=== PATIENT | female | born 1975 | race Caucasian/White ===

== ENCOUNTER 2019-11-25 08:13 | Outpatient (CLI) | payer OTHER, SELFPAY ==
--- NOTE | ~2019-11-25 | US_ITS ---
EXAMINATION: US thyroid DATE: 11/25/2019 08:45 INDICATION: Nontoxic single thyroid nodule TECHNIQUE: Multiple ultrasound images of the thyroid were obtained. COMPARISON: None. FINDINGS: The right thyroid lobe measures 4.9 x 2.0 x 2.3 cm. The left thyroid lobe measures 5.3 x 1.4 x 1.2 c m. Again seen are multiple bilateral thyroid nodules. No significant interval change in 1.5 cm (TI-R ADS 4, moderately suspicious , FNA if >=1.5 cm, annual followup is >1 cm) hypoechoic solid nodule or of a 1.9 cm (TI-RADS 3, mildly suspicious , FNA if >=2.5 cm, annual followup is >1.5 cm) mixed solid and cystic nodule, both in the right thyroid lobe. No significant interval change in a 1.3 cm solid hypoechoic TI-RADS 4 nodule at the junction of the left thyroid and thyroid isthmus. Smaller 12 mm so lid and 10 mm mixed solid and cystic nodules in the right thyroid and 8 mm solid nodule mid left thyr oid are also unchanged. IMPRESSION: 1. No significant interval change in multiple bilateral thyroid nodules. The largest solid TI-RADS 4 nodule in the right thyroid nodule measures 1.5 cm which is at the threshold for recommendation ultra sound-guided biopsy. Given the lack of significant interval change could consider either continued an nual follow-up or biopsy at this time. Reviewed, dictated and finalized at location A. IMPRESSION: 1. No significant interval change in multiple bilateral thyroid nodules. The la rgest solid TI-RADS 4 nodule in the right thyroid nodule measures 1.5 cm which is at the threshold for recommendation ultrasound-guided biopsy. Given the lack of significant interval change could consider either continued annual follow-u p or biopsy at this time.
== END 2019-11-25 08:14 | disposition home or self-care (01) ==
LOC: ANHIMG 08:15
PROVIDERS: PCP Family Medicine; Visit Provider Family Medicine
DX: E04.1 Nontoxic single thyroid nodule (principal)
CPT/HCPCS: 76536

== ENCOUNTER → 2019-12-06 13:00 | Outpatient (CLI) | payer OTHER, SELFPAY ==
--- NOTE | ~2019-12-06 | MM_ITS ---
EXAMINATION: MM screening jadiel BI w adriana HISTORY: Screening mammogram TECHNIQUE: Craniocaudal and mediolateral oblique 3-D tomosynthesis images were obtained and synthetic 2-D images were generated. CAD analysis was submitted and interpreted. COMPARISON: 11/02/2018 BREAST PARENCHYMAL COMPOSITION: There are scattered areas of fibroglandular density. FINDINGS: There is no evidence of suspicious mass, calcification, or architectural distortion to sugg est malignancy in either breast. There has been no suspicious interval change. IMPRESSION: 1. No mammographic evidence of malignancy. 2. Recommend routine screening mammography in one year. BI-RADS Category 1: Negative Reviewed, dictated and finalized at location A.
== END ==
PROVIDERS: PCP Family Medicine; Visit Provider Family Medicine
DX: Z12.31 Encounter for screening mammogram for malignant neoplasm of breast (principal)
CPT/HCPCS: 77063; 77067

== ENCOUNTER 2020-05-28 09:23 | Outpatient (CLI) | payer OTHER, SELFPAY ==
--- NOTE | 2020-05-28 09:27 | ECG_ITS ---
Measurements Intervals [place] Rate: 66 P: 46 [place]: 163 QRS: 60 QRSD: 83 T: 34 QT: 401 QTc: 422 Interpretive Statements SINUS RHYTHM BORDERLINE ST-T WAVE ABNORMALITY- INFERIOR LEADS BASELINE ARTIFACT- I, II, III, AVR, AVL, AVF BORDERLINE ECG Electronically Signed On 05-28-2020 9:38:41 CDT by Jt Velásquez D.O.
[2020-05-28 09:57] LABS: Anion Gap 5 mmol/L (8-16); Blood Urea Nitrogen 18 mg/dL (7-17); Carbon Dioxide 23 mmol/L (22-30); Chloride 110 mmol/L (98-107); Estimated Glomerular Filt Rate > 60; Glucose 95 mg/dL (65-105); Potassium 3.5 mmol/L (3.4-5.0); Sodium 138 mmol/L (137-145)
== END 2020-05-28 09:24 | disposition home or self-care (01) ==
LOC: ANHSURGERY 09:27
PROVIDERS: Anesthesiology; PCP Family Medicine; Visit Provider Otolaryngology
DX: Z01.818 Encounter for other preprocedural examination (principal); I10 Essential (primary) hypertension; Z51.81 Encounter for therapeutic drug level monitoring
CPT/HCPCS: 36415; 80048; 87635; 93005; C9803; U0003

== ENCOUNTER 2020-05-30 02:54 | Outpatient (CLI) | payer OTHER, SELFPAY ==
[2020-05-30 18:40] LABS: SARS-CoV-2 RNA PCR Negative
== END 2020-05-30 02:55 | disposition home or self-care (01) ==
LOC: ANHCOVIDDT 02:55
PROVIDERS: PCP Family Medicine; Visit Provider Otolaryngology
DX: Z01.812 Encounter for preprocedural laboratory examination (principal); Z11.59 Encounter for screening for other viral diseases
CPT/HCPCS: 87635; C9803; U0003

== ENCOUNTER 2020-06-01 01:21 | Day surgery (SDC) | payer OTHER, SELFPAY ==
[2020-05-21 14:45] VITALS: BMI 28.7
--- NOTE | 2020-05-31 13:54 | WPDANESEPPF ---
Anes - Initial Pre Proc Eval Procedure: Operation Date: 06/01/20 08:00 Proposed Procedures p Total Thyroidectomy - Philip Somers MD Date/Time: 05/31/20 13:54 Surgeon: Philip Somers MD Pre Op Diagnosis: Right Thyroid Mass Patient Data Age: 44 Gender: F Height: 5 ft 4.5 in Weight: 77.11 kg Allergies Allergy/AdvReac Type Severity Reaction Status Date / Time lisinopril AdvReac Unknown Cough Verified 05/21/20 14:46 Home Medications Medication Instructions Recorded Confirmed Type estradiol 2 mg tablet 2 mg PO DAILY #90 tablet 11/17/19 06/01/20 Rx topiramate 25 mg tablet 50 mg PO BID #120 tablet 03/21/20 06/01/20 Rx thyroid (pork) 60 mg tablet 60 mg PO DAILY 03/22/20 06/01/20 History calcium carbonate 600 mg calcium 600 mg PO DAILY 04/02/20 06/01/20 History (1,500 mg) tablet progesterone micronized 200 mg 200 mg PO DAILY 04/02/20 06/01/20 History capsule hydrochlorothiazide 12.5 mg tablet 12.5 mg PO DAILY #90 tablet 04/11/20 06/01/20 Rx metoprolol succinate 25 mg 25 mg PO DAILY #90 tablet 05/08/20 06/01/20 Rx tablet,extended release 24 hr Patient hx anesthesia problems: none Family hx anesthesia problems: none PMFSH Past Medical History Medical History (Updated 05/31/20 @ 13:53 by Cheng Hayward MD) Benign essential HTN Hypothyroid Migraines Surgical History Surgical History deliv NOS-unsp Hx of hysterectomy S/P cubital tunnel release Social History Social History (Updated 03/22/20 @ 13:40 by Stefany Cantu) Smoking status: Never smoker Second hand tobacco smoke exposure: No Alcohol intake: current Substance use: never Substance use type: does not use Gender identity (if verbalized by the patient): Female Spiritual care concerns: No Anes - Eval Final PreProcedure Day of Procedure 05/31/20 13:54 Patient weight: normal Heart: regular rate and rhythm Lungs: clear to auscultation Airway: Mallampati scale class II Neurological: alert and oriented Last oral intake: >/= 8 hours ASA classification: II Emergent: no Anesthetic plan: proceed Anesthesia type and monitoring: general ETT and standard monitoring Informed Consent: The patient's anesthetic plan and its attendant risks and benefits were discussed with the patient/family/POA. Questions were solicited and answers provided to the satisfaction of the patient/family/POA.
--- NOTE | 2020-05-31 16:30 | PM.IMHP ---
H&P: HPI History of Present Illness Date/Time: 05/31/20 16:30 Chief complaint: Right Thyroid Mass Narrative: Nona Hernandez is a 44 year old female with a compressive thyroid goiter. Of note she has a right-sided nodule meets criteria for biopsy. The patient has opted not to biopsy and is planned for total thyroidectomy in the operating room. Review of Systems Review of Systems: All systems reviewed & are unremarkable except as noted in HPI and below ( previous office visits) Constitutional: Constitutional: Denies fatigue, Denies fever(s) and Denies lethargy Eyes: Eyes: Denies blurry vision and Denies change in vision ENT: Reports as per HPI Cardiovascular: Cardiovascular: Denies chest pain Respiratory: Respiratory: Denies cough Endocrine: Endocrine: Denies fatigue Hematologic/Lymphatic: Hematologic/Lymphatic: Denies easy bleeding, Denies easy bruising and Denies lymphadenopathy Allergic/Immunologic: Allergic/Immunologic: Denies seasonal rhinorrhea PMFSH Past Medical History Medical History (Updated 05/31/20 @ 13:53 by Cheng Hayward MD) Benign essential HTN Hypothyroid Migraines Surgical History Surgical History deliv NOS-unsp Hx of hysterectomy S/P cubital tunnel release Social History Social History (Updated 03/22/20 @ 13:40 by Stefany Cantu) Smoking status: Never smoker Second hand tobacco smoke exposure: No Alcohol intake: current Substance use: never Substance use type: does not use Gender identity (if verbalized by the patient): Female Spiritual care concerns: No Meds Home Medications and Allergies Home Medications Medication Instructions Recorded Confirmed Type estradiol 2 mg tablet 2 mg PO DAILY #90 tablet 11/17/19 05/21/20 Rx topiramate 25 mg tablet 50 mg PO BID #120 tablet 03/21/20 05/21/20 Rx thyroid (pork) 60 mg tablet 60 mg PO DAILY 03/22/20 05/21/20 History calcium carbonate 600 mg calcium 600 mg PO DAILY 04/02/20 05/21/20 History (1,500 mg) tablet progesterone micronized 200 mg 200 mg PO DAILY 04/02/20 05/21/20 History capsule hydrochlorothiazide 12.5 mg tablet 12.5 mg PO DAILY #90 tablet 04/11/20 05/21/20 Rx metoprolol succinate 25 mg 25 mg PO DAILY #90 tablet 05/08/20 05/21/20 Rx tablet,extended release 24 hr Allergies Allergy/AdvReac Type Severity Reaction Status Date / Time lisinopril AdvReac Unknown Cough Verified 05/21/20 14:46 Exam Const: General: cooperative, healthy appearing, comfortable, well developed and alert HENMT: Head: normal to inspection, normocephalic and atraumatic Ears: hearing grossly normal bilaterally, external ears normal, TM's normal bilaterally and EAC's normal General nose exam: Normal external nose present, Normal nares present, No nasal polyps present, Normal nasal mucous membranes and turbinates present and Normal septum present Face and sinus: normal facial exam Mouth: Yes Normal oral and palatal mucosa present, Yes lip normal, Yes tongue normal, Yes oropharynx normal and Yes moist mucous membranes Teeth and gingiva: dentition normal and gingiva normal Throat: posterior oropharynx normal, tonsils normal and uvula midline Eyes: General: appearance normal, both eyes and all related structures Periorbital: periorbital findings normal Eyelids: eyelids normal Conjunctivae: conjunctivae normal Sclera: sclerae normal Neck: Neck: normal visual inspection, full ROM and no lymphadenopathy Thyroid: diffusely enlarged and multiple palpable nodules Lymphatic: no lymphadenopathy noted Resp: Effort & Inspection: normal respiratory effort and able to speak in complete sentences Cardio: Jugular venous distension: no JVD Neuro: Cranial nerves: Yes CN's II-XII intact bilaterally Assessment and Plan Assessment and plan (1) Multinodular goiter: Code(s): E04.2 - Nontoxic multinodular goiter Status: Acute Assessment and Plan
[2020-06-01] VITALS (12 sets, daily range): BP systolic 114–139; BP diastolic 58–74; PULSE 71–94; RESP 14–20; TEMP 36.3–36.4; O2SAT 97–100
[2020-06-01] MEDS: LACTATED RINGERS 1,000 ML 30 ML IV CONT ×2 (07:25→10:11)
[2020-06-01] MEDS: ACETAMINOPHEN 500 MG TABLET 1000 MG PO (07:25)
--- NOTE | 2020-06-01 07:45 | WPDHPUPDATE1 ---
History and Physical Update Update Date/Time: 06/01/20 07:45 History and Physical has been reviewed, including an updated exam of the patient. There are NO changes in the patient's condition. Risks, benefits, and alternatives have been discussed and questions answered. Patient agrees to proceed with procedure.
[2020-06-01] MEDS: LIDO 1%/EPINEPHRINE 1:100,000 20 ML VIAL 10 ML INFILTRATE (07:58)
[2020-06-01] MEDS: ceFAZolin 2 GM/D5W 50 ML 2 GM/50 ML BAG IVPB (07:59)
[2020-06-01] MEDS: fentaNYL CITRATE INJ (*CRX) 100 MCG/2 ML VIAL 25 MCG IV PUSH ×4 (10:30→10:45)
[2020-06-01 11:21] LABS: Parathyroid Intact 11.7 pg/mL (7.5-53.5)
--- NOTE | 2020-06-01 11:36 | SUR.PHASEI ---
1130 DR MORALES AT BEDSIDE. SPEAKING WITH PT. AWARE PTH RESULT. DR HART TO DISCHARGE PT HOME WHEN ANESTHESIA CRITERIA MET.
--- NOTE | 2020-06-01 11:51 | P.OP_ITS ---
Procedure Note - Detailed Date of procedure: 06/01/20 Pre-op diagnosis: Right Thyroid Mass Post-op diagnosis: same Procedure performed: 1. Total thyroidectomy with recurrent laryngeal nerve monitoring Description of procedure: The patient was correctly identified and consent was verified in the preoperative holding area The patient was then brought to the operating room and a time-out was performed. The patient was then correctly posi tioned and a Nims endotracheal tube was inserted in the patient's airways as anesthesia was induced. 1 cc of 1% lidocaine with 1 100,000 parts epinephrine was injected into the subcutaneous tissues deep to the pre drawn midline surgical incision. The surgical incision was approximately 2 fingerbreadths above the clavicle horizontally in a relaxed skin tension line and 4.5 cm length. The patient was then prepped for the aforementioned procedure. A 15 blade was utilized to cut through the dermis. Bovie electrocautery was used to dissect down to the midline strap musculature. Inferior and superior based subplatysmal flaps were then elevated. The midline raphe was identified and blunt dissection was carried down to the thyroid gland. The right thyroid lobe was exposed and a large nodule with identified. Dissection was carried around the right thyroid lobe until the recurrent laryngeal nerve was identified. This was confirmed with Nims monitoring. A similar procedure was performed on the left side. Following the procedure both recurrent laryngeal nerves were again stimulated to confirm their function. Of note 3 of the 4 parathyroid glands were identified and preserved, the right inferior was not identified. Hemostasis was noted to be excellent following irrigation and the application of starch hemostatic agent. The strap musculature was closed with 3 0 interrupted Vicryl sutures. The subplatysmal the platysma was closed with 3 0 interrupted sutures and the skin was closed with a 4 Monocryl deep and skin glue. Again hemostasis was noted to be excellent. Care of the patient was turned over to Anesthesiology. Upon waking up a glide scope was used to confirm the bilateral vocal cord movement was full and symmetric. There were no complications and I performed all portions of the procedure. Anesthesia: GLMA Surgeon: Philip Somers MD Estimated blood loss (mL): 5 Drains: No Complications: No immediate complications Condition: stable Disposition: PACU Findings: Bilateral thyroid nodules right greater than left. 3 of 4 parathyroid glands identified right inferior not identified. Bilateral recurrent laryngeal nerve stimulation following procedure. Bilateral true vocal cord full and symmetric movement following procedure.
[2020-06-01] MEDS: oxyCODONE HCL (*CRX) 5 MG TAB IR PO (12:04)
--- NOTE | 2020-06-01 13:53 | SUR.PHASEII ---
1315 PT MEETS ANESTHESIA DISCHARGE CRITERIA. PT DRESSED. WAITING ON RIDE HOME.
== END 2020-06-01 13:38 | disposition home or self-care (01) ==
PROVIDERS: PCP Family Medicine; Visit Provider Otolaryngology
PROC: (CPT 60240; principal; 2020-06-01 08:00)
DX: E04.2 Nontoxic multinodular goiter (principal); I10 Essential (primary) hypertension; E03.9 Hypothyroidism, unspecified
CPT/HCPCS: 60240; 36415; 80048; 83970; 87635; 88307; 93005; A9270; C9803; J0330; J0690; J1100; J2250; J2405; J2704; J3010; J7120; U0003